=== PATIENT | female | born 1990 | race Caucasian/White ===

== ENCOUNTER 2021-01-09 09:04 | Outpatient (CLI) | payer OTHER ==
[2021-01-15] MEDS ORDERED: MELOXICAM7.5 MG PO (15:17)
== END 2021-01-09 09:15 | disposition home or self-care (01) ==
LOC: SONOGRAMA 09:04
PROVIDERS: ATTEND Obstetrics & Gynecology Obstetrics
DX: R10.2 Pelvic and perineal pain (principal)

== ENCOUNTER 2021-01-15 15:32 | Inpatient (IN) | payer OTHER ==
[~2021-01-15] VITALS: Ht 175.3 cm; Wt 84.4 kg
[~2021-01-15 15:32] MED LIST: MELOXICAM7.5 MG PO
== END 2021-01-17 13:24 | disposition home or self-care (01) | DRG 743 ==
LOC: O/R 01-16 05:58 → SURH 01-16 07:00 → OB/GYN 01-16 10:49 → EDSTATUS 01-16 14:23 → CIR.AMB 01-16 14:23 → SURH 01-16 14:24 → OB/GYN 01-17 13:24
PROVIDERS: ADMIT Obstetrics & Gynecology; ATTEND Obstetrics & Gynecology
PROC: 0UB10ZZ Excision of Left Ovary, Open Approach (ICD-10-PCS; 2021-01-16)
PROC: 0UB90ZZ Excision of Uterus, Open Approach (ICD-10-PCS; principal; 2021-01-16 07:00)
DX: D25.0 Submucous leiomyoma of uterus (principal); D25.1 Intramural leiomyoma of uterus; N83.02 Follicular cyst of left ovary; N83.8 Other noninflammatory disorders of ovary, fallopian tube and broad ligament; R10.2 Pelvic and perineal pain

== ENCOUNTER → 2021-01-24 | Emergency (ER) | payer OTHER ==
[~2021-01-24] VITALS: Ht 175.3 cm; Wt 84.4 kg
== END | disposition home or self-care (01) ==
LOC: ER 11:21
DX: N99.821 Postprocedural hemorrhage of a genitourinary system organ or structure following other procedure (principal); Y83.8 Other surgical procedures as the cause of abnormal reaction of the patient, or of later complication, without mention of misadventure at the time of the procedure

== ENCOUNTER 2021-06-05 12:06 | Outpatient (CLI) | payer OTHER | END 2021-06-05 12:08 | disposition home or self-care (01) | LOC: LAB 12:06 | PROVIDERS: ATTEND Radiology Diagnostic Radiology | DX: N83.00 Follicular cyst of ovary, unspecified side (principal) ==

== ENCOUNTER 2021-06-08 13:01 | Outpatient (CLI) | payer OTHER ==
[2021-06-25] MEDS ORDERED: BUSPIRONE HCL7.5 MG PO (13:19)
== END 2021-06-08 13:15 | disposition home or self-care (01) ==
LOC: MRI 13:01
DX: R19.09 Other intra-abdominal and pelvic swelling, mass and lump (principal)

== ENCOUNTER 2021-06-10 08:50 | Outpatient (CLI) | payer OTHER | END 2021-06-10 08:58 | disposition home or self-care (01) | LOC: MRI 08:50 | PROVIDERS: ATTEND Obstetrics & Gynecology | DX: N93.8 Other specified abnormal uterine and vaginal bleeding (principal); N83.00 Follicular cyst of ovary, unspecified side | CPT/HCPCS: 72196 ==

== ENCOUNTER 2021-07-01 05:24 | Day surgery (SDC) | payer OTHER ==
[~2021-07-01 05:24] MED LIST changes: +BUSPIRONE HCL7.5 MG PO
== END 2021-07-01 13:50 | disposition home or self-care (01) ==
LOC: CIR.AMB 05:24
PROVIDERS: ATTEND Obstetrics & Gynecology
DX: C53.0 Malignant neoplasm of endocervix (principal); I10 Essential (primary) hypertension; Z87.891 Personal history of nicotine dependence; E16.2 Hypoglycemia, unspecified; F32.A Depression, unspecified; G43.909 Migraine, unspecified, not intractable, without status migrainosus; Z71.6 Tobacco abuse counseling

== ENCOUNTER 2021-07-21 22:15 | Emergency (ER) | payer OTHER ==
[~2021-07-21] VITALS: Ht 175.3 cm; Wt 97.1 kg
[2021-07-21] MEDS ORDERED: KETOROLAC TROME10 MG (22:27)
[2021-07-21] MEDS ORDERED: BUSPIRONE HCL15 MG (22:28)
[2021-07-22] MEDS ORDERED: HEMATOGEN FORT1 EACH PO (08:26)
== END 2021-07-22 09:44 ==
LOC: ER 22:15
DX: C53.9 Malignant neoplasm of cervix uteri, unspecified (principal); N93.8 Other specified abnormal uterine and vaginal bleeding

== ENCOUNTER 2021-07-29 08:07 | Outpatient (CLI) | payer OTHER ==
[~2021-07-29 08:07] MED LIST changes: +BUSPIRONE HCL15 MG; +HEMATOGEN FORT1 EACH PO; +KETOROLAC TROME10 MG
== END 2021-07-29 08:08 | disposition home or self-care (01) ==
LOC: NUCLEAR 08:07
PROVIDERS: ATTEND General Practice
DX: C53.0 Malignant neoplasm of endocervix (principal)
CPT/HCPCS: 78815; A9552

== ENCOUNTER → 2021-08-03 10:07 | Outpatient (CLI) | payer OTHER | END | disposition home or self-care (01) | LOC: LAB 10:07 | PROVIDERS: ATTEND Obstetrics & Gynecology Gynecologic Oncology | DX: N97.1 Female infertility of tubal origin (principal); I10 Essential (primary) hypertension ==

== ENCOUNTER 2022-01-15 08:22 | Outpatient (CLI) | payer OTHER | END 2022-01-15 08:31 | disposition home or self-care (01) | LOC: MRI 08:22 | PROVIDERS: ATTEND Internal Medicine Hematology & Oncology | DX: C53.1 Malignant neoplasm of exocervix (principal) | CPT/HCPCS: 72197 ==

== ENCOUNTER → 2022-02-08 | Outpatient (CLI) | payer OTHER | END | disposition home or self-care (01) | LOC: NUCLEAR 08:28 | PROVIDERS: ATTEND Radiology Radiation Oncology | DX: C53.8 Malignant neoplasm of overlapping sites of cervix uteri (principal) | CPT/HCPCS: 78816; A9552 ==

== ENCOUNTER 2022-07-02 08:01 | Outpatient (CLI) | payer OTHER | END 2022-07-02 08:05 | disposition home or self-care (01) | LOC: NUCLEAR 08:01 | PROVIDERS: ATTEND Obstetrics & Gynecology Gynecologic Oncology | DX: C53.0 Malignant neoplasm of endocervix (principal) | CPT/HCPCS: 78815; A9552 ==

== ENCOUNTER 2023-05-30 08:44 | Outpatient (CLI) | payer OTHER | END 2023-05-30 08:45 | disposition home or self-care (01) | LOC: NUCLEAR 08:44 | PROVIDERS: ATTEND Obstetrics & Gynecology Gynecologic Oncology | DX: C53.0 Malignant neoplasm of endocervix (principal) ==

== ENCOUNTER 2024-08-17 10:24 | Outpatient (CLI) | payer OTHER | END 2024-08-17 10:30 | disposition home or self-care (01) | LOC: MRI 10:24 | PROVIDERS: ATTEND Internal Medicine Rheumatology | DX: M54.16 Radiculopathy, lumbar region (principal) | CPT/HCPCS: 72148 ==

== ENCOUNTER 2024-08-24 07:44 | Outpatient (CLI) | payer OTHER | END 2024-08-24 07:45 | disposition home or self-care (01) | LOC: NUCLEAR 07:44 | PROVIDERS: ATTEND Obstetrics & Gynecology Gynecologic Oncology | DX: C53.0 Malignant neoplasm of endocervix (principal) ==